=== PATIENT | female | born 1975 | race African-American/Black ===

== ENCOUNTER → 2020-07-31 09:16 | Outpatient (CLI) | payer OTHER, MEDICAID, SELFPAY ==
[2020-07-31 19:49] LABS: C-Reactive Protein Quant < 0.5 mg/dL (<1.0)
[2020-07-31 19:56] LABS: Erythrocyte Sedimentation Rate 29 MM/HR (0-20)
[2020-07-31 20:08] LABS: Thyroid Stimulating Hormone 0.875 uIU/mL (0.47-4.68)
[2020-08-02 05:22] LABS: Immunoglobulin A 126 mg/dL (87-352)
[2020-08-02 17:08] LABS: Tissue Transglutaminase IgA <2 U/mL (0-3)
== END ==
PROVIDERS: Internal Medicine Gastroenterology; Visit Provider Physician Assistant
DX: D64.9 Anemia, unspecified (principal)
CPT/HCPCS: 82784; 83516; 84443; 85651; 86140

== ENCOUNTER → 2021-01-12 11:41 | Outpatient (CLI) | payer OTHER, MEDICAID, SELFPAY ==
[2021-01-12 19:18] LABS: Add Manual Diff / Slide Review NO; Basophils Absolute Auto 100 /uL (0-100); Basophils Percent Auto 1.3 % (0-2); Eosinophils Absolute Auto 100 /uL (0-450); Eosinophils Percent Auto 2.2 % (2-4); Hematocrit 30.1 % (36-46); Hemoglobin 9.4 g/dL (12.0-16.0); Lymphocytes Absolute Auto 1200 /uL (1100-4500); Lymphocytes Percent Auto 28.8 % (25-40); Mean Corpuscular HGB Conc 31.2 % (30-36); Mean Corpuscular Hemoglobin 23.6 PG (26-34); Mean Corpuscular Volume 75.7 fL (80-100); Monocytes Absolute Auto 500 /uL (0-900); Monocytes Percent Auto 13.2 % (3-14); Neutrophils Absolute Auto 2200 /uL (1500-7000); Neutrophils Percent Auto 54.5 % (50-75); Platelet Count 267 X10^3/uL (150-400); Red Blood Cell Count 3.97 X10^6/uL (4.0-5.2); Red Cell Distribution Width 21.2 % (11.6-14.8); White Blood Cell Count 4.1 X10^3/uL (4.5-11.0)
[2021-01-12 19:47] LABS: Poikilocytosis 2+
[2021-01-12 19:48] LABS: Anisocytosis 2+; Microcytosis 1+; Schistocytes 1+; Target Cells 1+
[2021-01-12 20:01] LABS: Erythrocyte Sedimentation Rate 28 MM/HR (0-20)
[2021-01-14 09:22] LABS: Immunoglobulin A 144 mg/dL (87-352)
[2021-01-15 13:09] LABS: Anti Gliadin IgG Ab 3 units (0-19); Gliadin Gluten IgA 4 units (0-19); Tissue Transglutaminase IgA <2 U/mL (0-3)
== END ==
DX: E61.1 Iron deficiency (principal); K59.09 Other constipation; N92.0 Excessive and frequent menstruation with regular cycle; R70.0 Elevated erythrocyte sedimentation rate
CPT/HCPCS: 80053; 82784; 83516; 85025; 85651

== ENCOUNTER 2022-03-12 15:23 | Emergency (ER) | payer OTHER, MEDICAID, SELFPAY ==
[2022-03-12] VITALS (28 sets, daily range): BP systolic 83–143; BP diastolic 47–92; PULSE 73–99; TEMP 36.8–37.3; O2SAT 97–100
--- NOTE | 2022-03-12 16:10 | ED.PSYCH ---
HPI - Psych <Quynh Delgado DO - Last Filed: 03/14/22 04:24> General Chief Complaint: Psychiatric Symptoms Stated Complaint: Schizophrenia Time Seen by Provider: 03/12/22 15:40 Source: patient and EMS Mode of arrival: EMS History of Present Illness HPI Narrative: Patient is a 46-year-old female who presents with walking in and out of traffic and attempting to enter residence private property. Police were called. She required restraints to be transported. She is calm she is not aggressive but she is now not cooperative. Not allowing anyone to touch her. Of very specific about where she wants people to stand. She is requesting that a certain person Justen Joby be contacted. She states that she has legal right. She denies wanting to harm herself or anyone else. Related Data Home Medications Medication Instructions Recorded Confirmed ferrous fumarate 325 mg (106 mg 325 mg PO BID 09/27/20 09/27/20 iron) tablet Previous Rx's Medication Instructions Recorded naproxen 500 mg tablet 500 mg PO BID #30 tabs 10/02/21 Allergies Allergy/AdvReac Type Severity Reaction Status Date / Time No Known Drug Allergies Allergy Verified 03/12/22 15:44 <Beto Hicks DO - Last Filed: 03/14/22 07:40> History of Present Illness HPI Narrative: Patient is a 46-year-old female who presents with walking in and out of traffic and attempting to enter residence private property. Police were called. She required restraints to be transported. She is calm she is not aggressive but she is now not cooperative. Not allowing anyone to touch her. Of very specific about where she wants people to stand. She is requesting that a certain person Justen Joby be contacted. She states that she has legal right. She denies wanting to harm herself or anyone else. Patient History <Quynh Delgado DO - Last Filed: 03/14/22 04:24> Social History Smoking Status: Never smoker Smoking Status: Never smoker Exam <Quynh Delgado DO - Last Filed: 03/14/22 04:24> Initial Vital Signs Initial Vital Signs: Vital Signs Temperature 99.2 F 03/12/22 15:44 Blood Pressure 143/92 H 03/12/22 15:44 <Jeremiah Alexander MD - Last Filed: 03/26/22 07:21> Initial Vital Signs Initial Vital Signs: Vital Signs Temperature 99.2 F 03/12/22 15:44 Blood Pressure 143/92 H 03/12/22 15:44 <Beto Hicks DO - Last Filed: 03/14/22 07:40> Initial Vital Signs Initial Vital Signs: Vital Signs Temperature 99.2 F 03/12/22 15:44 Blood Pressure 143/92 H 03/12/22 15:44 Course <Quynh Delgado DO - Last Filed: 03/14/22 04:24> Orders Ordered: Discontinued Medications Diphenhydramine HCl (Diphenhydramine 50 Mg/Ml Vial) 50 mg IM NOW ONE Stop: 03/12/22 17:48 Last Admin: 03/12/22 17:54 Dose: 50 mg Documented By: CATY Lorazepam (Lorazepam 2 Mg/Ml Inj) 2 mg IM NOW ONE Stop: 03/12/22 17:48 Last Admin: 03/12/22 17:54 Dose: 2 mg Documented By: CATY Olanzapine (Olanzapine Odt 10 Mg Tab) 10 mg PO NOW ONE Stop: 03/13/22 19:36 Last Admin: 03/13/22 23:19 Dose: Not Given Documented By: RB Vital Signs Vital signs: Vital Signs - 8 hr 03/13/22 22:58 Respiratory Rate 16 <Jeremiah Alexander MD - Last Filed: 03/26/22 07:21> Course Course Narrative: March 12, 2022 at 6:00 p.m.. Sign out from Dr. Delgado, patient is likely gravely disabled. Will need DCR in social work. Labs are pending. Patient required Haldol and Ativan and Benadryl for acute psychosis. Very little is known about patient at this time. However patient was walking in and out of traffic and residents and businesses. Patient has been very paranoid as well. March 13, 2022 at 7:00 a.m., Sign out Dr Hicks, patient awaiting for DCR however patient was medicated last night and needs to metabolize for clarity/conversation with DCR. Patient was seen by social insurance specialist Orders Ordered: Discontinued Medications Diphenhydramine HCl (Diphenhydramine 50 Mg/Ml Vial) 50 mg IM NOW ONE Stop: 03/12/22 17:48 Last Admin: 03/12/22 17:54 Dose: 50 mg Documented By: CATY Lorazepam (Lorazepam 2 Mg/Ml Inj) 2 mg IM NOW ONE Stop: 03/12/22 17:48 Last Admin: 03/12/22 17:54 Dose: 2 mg Documented By: CATY Olanzapine (Olanzapine Odt 10 Mg Tab) 10 mg PO NOW ONE Stop: 03/13/22 19:36 Last Admin: 03/13/22 23:19 Dose: Not Given Documented By: RB Vital Signs Vital signs: Vital Signs - 8 hr 03/13/22 22:58 Respiratory Rate 16 <Beto Hicks, DO - Last Filed: 03/14/22 07:40> Course Course Narrative: March 12, 2022 at 6:00 p.m.. Sign out from Dr. Delgado, patient is likely gravely disabled. Will need DCR in social work. Labs are pending. Patient required Haldol and Ativan and Benadryl for acute psychosis. Very little is known about patient at this time. However patient was walking in and out of traffic and residents and businesses. Patient has been very paranoid as well. March 13, 2022 at 7:00 a.m., Sign out Dr Hicks, patient awaiting for DCR however patient was medicated last night and needs to metabolize for clarity/conversation with DCR. Patient was seen by social insurance specialist [[id number]] 03/13/22 (Kurt) Patient received in sign out from [Catherine]. I have reviewed the clinical course and performed an independent history and physical exam. She sitting up bright only complaint is of being a bit groggy from the medications. She is eating. She states she does not have any medical or mental health history. She denies any trauma or injury. She denies any street drugs or alcohol. She denies that she was agitated, worked up or acting abnormally yesterday and states that we must be making it up. She is currently refusing a repeat physical exam 0810 03/13/22 -patient medically cleared Orders Ordered: Discontinued Medications Diphenhydramine HCl (Diphenhydramine 50 Mg/Ml Vial) 50 mg IM NOW ONE Stop: 03/12/22 17:48 Last Admin: 03/12/22 17:54 Dose: 50 mg Documented By: CATY Lorazepam (Lorazepam 2 Mg/Ml Inj) 2 mg IM NOW ONE Stop: 03/12/22 17:48 Last Admin: 03/12/22 17:54 Dose: 2 mg Documented By: CATY Olanzapine (Olanzapine Odt 10 Mg Tab) 10 mg PO NOW ONE Stop: 03/13/22 19:36 Last Admin: 03/13/22 23:19 Dose: Not Given Documented By: RB Vital Signs Vital signs: Vital Signs - 8 hr 03/13/22 22:58 Respiratory Rate 16 MDM - Psych <Quynh Delgado DO - Last Filed: 03/14/22 04:24> Lab Data Result diagrams: 03/12/22 19:15 03/12/22 19:15 Labs: Lab Results 03/12/22 03/12/22 03/12/22 Range/Units 18:15 18:15 19:15 WBC (4.5-11.0) X10^3/uL RBC (4.0-5.2) X10^6/uL Hgb (12.0-16.0) g/dL Hct (36-46) % MCV (80-100) fL MCH (26-34) PG MCHC (30-36) % RDW (11.6-14.8) % Plt Count (150-400) X10^3/uL Neut % (Auto) (50-75) % Lymph % (Auto) (25-40) % [place] % (Auto) (3-14) % Eos % (Auto) (2-4) % Baso % (Auto) (0-2) % Neut # (Auto) (6021-6432) /uL Lymph # (Auto) (4155-9035) /uL [place] # (Auto) (0-900) /uL Eos # (Auto) (0-450) /uL Baso # (Auto) (0-100) /uL Sodium (137-145) mmol/L Potassium (3.4-5.1) mmol/L Chloride (98-107) mmol/L Carbon Dioxide (22-32) mmol/L BUN (7-17) mg/dL Creatinine (0.52-1.04) mg/dL Estimated GFR (>60) mL/min BUN/Creatinine Ratio (6-22) Glucose (70-100) mg/dL Calcium (8.4-10.2) mg/dL Total Bilirubin (0.2-1.3) mg/dL AST (14-36) IU/L ALT (<35) IU/L Alkaline Phosphatase (38-126) U/L Total Protein (6.3-8.2) g/dL Albumin (3.5-5.0) g/dL Globulin (1.7-4.1) g/dL Albumin/Globulin Ratio (1.0-2.8) TSH 2.46 (0.47-4.68) uIU/mL Serum , Qual (Negative) Urine Color Yellow Urine Appearance Clear Urine pH 5.5 (4.5-8.0) Ur Specific [place] 1.025 (1.000-1.035) Urine Protein 2+ H (Negative) Urine Glucose (UA) Negative (Negative) g/dL Urine Ketones Trace H (NEGATIVE) Urine Occult Blood 1+ H (Negative) Urine Nitrate Negative (Negative) Urine Bilirubin Negative (NEGATIVE) Urine Urobilinogen 0.2 (0.2) E.U./dL Ur Leukocyte Esterase Trace H (NEGATIVE) Urine RBC 1-5/hpf (0-5/HPF) Urine WBC 1-5/hpf (0-5/HPF) Ur Squamous Epith Cells 1-5 /hpf (0-5/HPF) Amorphous Sediment 1+ Urine Bacteria Moderate (10-30) H (None) Urine Mucus 2+ H (Negative) Ur Culture Indicated? Specimen cultured Salicylates (<20) mg/dL U Opiates 300ng/mL cut Negative (Negative) Ur Oxycodone Screen Negative (Negative) Urine Methadone Screen Negative (Negative) Acetaminophen (10-30) ug/mL Ur Barbiturates Screen Negative (Negative) U Tricyclic Antidepress Negative (Negative) Ur Phencyclidine Scrn Negative (Negative) Ur Amphetamines Screen Negative (Negative) U Methamphetamines Scrn Negative (Negative) Ur MDMA Scrn (Ecstasy) Negative (Negative) U Benzodiazepines Scrn Negative (Negative) Urine Cocaine Screen Negative (Negative) U Marijuana (THC) Screen Negative (Negative) Ethyl Alcohol ( - 10) mg/dL SARS-CoV-2 (PCR) (Negative) 03/12/22 03/12/22 03/12/22 Range/Units 19:15 19:15 19:15 WBC 5.5 (4.5-11.0) X10^3/uL RBC 3.94 L (4.0-5.2) X10^6/uL Hgb 9.9 L (12.0-16.0) g/dL Hct 31.2 L (36-46) % MCV 79.2 L (80-100) fL MCH 25.2 L (26-34) PG MCHC 31.8 (30-36) % RDW 18.5 H (11.6-14.8) % Plt Count 336 (150-400) X10^3/uL Neut % (Auto) 74.1 (50-75) % Lymph % (Auto) 13.3 L (25-40) % [place] % (Auto) 10.9 (3-14) % Eos % (Auto) 0.1 L (2-4) % Baso % (Auto) 1.6 (0-2) % Neut # (Auto) 4100 (1087-0210) /uL Lymph # (Auto) 700 L (7223-3559) /uL [place] # (Auto) 600 (0-900) /uL Eos # (Auto) 0 (0-450) /uL Baso # (Auto) 100 (0-100) /uL Sodium (137-145) mmol/L Potassium (3.4-5.1) mmol/L Chloride (98-107) mmol/L Carbon Dioxide (22-32) mmol/L BUN (7-17) mg/dL Creatinine (0.52-1.04) mg/dL Estimated GFR (>60) mL/min BUN/Creatinine Ratio (6-22) Glucose (70-100) mg/dL Calcium (8.4-10.2) mg/dL Total Bilirubin (0.2-1.3) mg/dL AST (14-36) IU/L ALT (<35) IU/L Alkaline Phosphatase (38-126) U/L Total Protein (6.3-8.2) g/dL Albumin (3.5-5.0) g/dL Globulin (1.7-4.1) g/dL Albumin/Globulin Ratio (1.0-2.8) TSH (0.47-4.68) uIU/mL Serum , Qual Negative (Negative) Urine Color Urine Appearance Urine pH (4.5-8.0) Ur Specific [place] (1.000-1.035) Urine Protein (Negative) Urine Glucose (UA) (Negative) g/dL Urine Ketones (NEGATIVE) Urine Occult Blood (Negative) Urine Nitrate (Negative) Urine Bilirubin (NEGATIVE) Urine Urobilinogen (0.2) E.U./dL Ur Leukocyte Esterase (NEGATIVE) Urine RBC (0-5/HPF) Urine WBC (0-5/HPF) Ur Squamous Epith Cells (0-5/HPF) Amorphous Sediment Urine Bacteria (None) Urine Mucus (Negative) Ur Culture Indicated? Salicylates < 1.0 (<20) mg/dL U Opiates 300ng/mL cut (Negative) Ur Oxycodone Screen (Negative) Urine Methadone Screen (Negative) Acetaminophen < 10 (10-30) ug/mL Ur Barbiturates Screen (Negative) U Tricyclic Antidepress (Negative) Ur Phencyclidine Scrn (Negative) Ur Amphetamines Screen (Negative) U Methamphetamines Scrn (Negative) Ur MDMA Scrn (Ecstasy) (Negative) U Benzodiazepines Scrn (Negative) Urine Cocaine Screen (Negative) U Marijuana (THC) Screen (Negative) Ethyl Alcohol ( - 10) mg/dL SARS-CoV-2 (PCR) (Negative) 03/12/22 03/12/22 Range/Units 19:15 20:00 WBC (4.5-11.0) X10^3/uL RBC (4.0-5.2) X10^6/uL Hgb (12.0-16.0) g/dL Hct (36-46) % MCV (80-100) fL MCH (26-34) PG MCHC (30-36) % RDW (11.6-14.8) % Plt Count (150-400) X10^3/uL Neut % (Auto) (50-75) % Lymph % (Auto) (25-40) % [place] % (Auto) (3-14) % Eos % (Auto) (2-4) % Baso % (Auto) (0-2) % Neut # (Auto) (3773-5718) /uL Lymph # (Auto) (8775-6035) /uL [place] # (Auto) (0-900) /uL Eos # (Auto) (0-450) /uL Baso # (Auto) (0-100) /uL Sodium 140 (137-145) mmol/L Potassium 3.5 (3.4-5.1) mmol/L Chloride 103 (98-107) mmol/L Carbon Dioxide 25 (22-32) mmol/L BUN 11 (7-17) mg/dL Creatinine 0.52 (0.52-1.04) mg/dL Estimated GFR > 60 (>60) mL/min BUN/Creatinine Ratio 21.2 (6-22) Glucose 108 H (70-100) mg/dL Calcium 9.6 (8.4-10.2) mg/dL Total Bilirubin 0.4 (0.2-1.3) mg/dL AST 26 (14-36) IU/L ALT 18 (<35) IU/L Alkaline Phosphatase 51 (38-126) U/L Total Protein 8.7 H (6.3-8.2) g/dL Albumin 4.8 (3.5-5.0) g/dL Globulin 3.9 (1.7-4.1) g/dL Albumin/Globulin Ratio 1.2 (1.0-2.8) TSH (0.47-4.68) uIU/mL Serum , Qual (Negative) Urine Color Urine Appearance Urine pH (4.5-8.0) Ur Specific [place] (1.000-1.035) Urine Protein (Negative) Urine Glucose (UA) (Negative) g/dL Urine Ketones (NEGATIVE) Urine Occult Blood (Negative) Urine Nitrate (Negative) Urine Bilirubin (NEGATIVE) Urine Urobilinogen (0.2) E.U./dL Ur Leukocyte Esterase (NEGATIVE) Urine RBC (0-5/HPF) Urine WBC (0-5/HPF) Ur Squamous Epith Cells (0-5/HPF) Amorphous Sediment Urine Bacteria (None) Urine Mucus (Negative) Ur Culture Indicated? Salicylates (<20) mg/dL U Opiates 300ng/mL cut (Negative) Ur Oxycodone Screen (Negative) Urine Methadone Screen (Negative) Acetaminophen (10-30) ug/mL Ur Barbiturates Screen (Negative) U Tricyclic Antidepress (Negative) Ur Phencyclidine Scrn (Negative) Ur Amphetamines Screen (Negative) U Methamphetamines Scrn (Negative) Ur MDMA Scrn (Ecstasy) (Negative) U Benzodiazepines Scrn (Negative) Urine Cocaine Screen (Negative) U Marijuana (THC) Screen (Negative) Ethyl Alcohol < 10 ( - 10) mg/dL SARS-CoV-2 (PCR) Negative (Negative) MDM Narrative Medical decision making narrative: Patient was given multiple opportunities to cooperate. She was restrained with soft restraints for EMS however the restraints were not tied to a bed. We attempted and tried multiple times to take them off her wrists at her request. But then she did not want anyone touching her. She continues to request multiple 35 years to come and see her. sHe is not suicidal or homicidal. She is extremely paranoid. She is found to be walking in and out of traffic. There is concern from police that she is mentally unwell and I agree. Patient stood up and walked out of the emergency department. It was requested that she come back and she kept walking faster and started running. Patient was given multiple opportunities to return to the emergency department. She was unwilling to go. She was given a shot of Haldol and placed in a wheelchair. Patient stating that she could not walk on the floor she could not sit in the wheelchair because somebody in it. Once patient back in the emergency department. Refusing to continue to cooperate. Wants to go to the bathroom she is offered a bedside commode. That is not what she wants. Patient is given Ativan and Benadryl. Continues to refuse blood work. She continues to be paranoid and hyper focused on finding this 1 particular person who we can not find. Patient is gravely disabled extremely paranoid she is not aggressive in any way but is not cooperative. Numbers in patient chart have been tried. [phone] is no longer working, is continuously busy. Patient signed out to Dr. Alexander. Patient currently involuntary botnick- Patient placed as [place] she is been updated and is cooperative about going <Jermeiah Alexander MD - Last Filed: 03/26/22 07:21> Lab Data Labs: Lab Results 03/12/22 03/12/22 03/12/22 Range/Units 18:15 18:15 19:15 WBC (4.5-11.0) X10^3/uL RBC (4.0-5.2) X10^6/uL Hgb (12.0-16.0) g/dL Hct (36-46) % MCV (80-100) fL MCH (26-34) PG MCHC (30-36) % RDW (11.6-14.8) % Plt Count (150-400) X10^3/uL Neut % (Auto) (50-75) % Lymph % (Auto) (25-40) % [place] % (Auto) (3-14) % Eos % (Auto) (2-4) % Baso % (Auto) (0-2) % Neut # (Auto) (1270-1801) /uL Lymph # (Auto) (5228-3369) /uL [place] # (Auto) (0-900) /uL Eos # (Auto) (0-450) /uL Baso # (Auto) (0-100) /uL Sodium (137-145) mmol/L Potassium (3.4-5.1) mmol/L Chloride (98-107) mmol/L Carbon Dioxide (22-32) mmol/L BUN (7-17) mg/dL Creatinine (0.52-1.04) mg/dL Estimated GFR (>60) mL/min BUN/Creatinine Ratio (6-22) Glucose (70-100) mg/dL Calcium (8.4-10.2) mg/dL Total Bilirubin (0.2-1.3) mg/dL AST (14-36) IU/L ALT (<35) IU/L Alkaline Phosphatase (38-126) U/L Total Protein (6.3-8.2) g/dL Albumin (3.5-5.0) g/dL Globulin (1.7-4.1) g/dL Albumin/Globulin Ratio (1.0-2.8) TSH 2.46 (0.47-4.68) uIU/mL Serum , Qual (Negative) Urine Color Yellow Urine Appearance Clear Urine pH 5.5 (4.5-8.0) Ur Specific [place] 1.025 (1.000-1.035) Urine Protein 2+ H (Negative) Urine Glucose (UA) Negative (Negative) g/dL Urine Ketones Trace H (NEGATIVE) Urine Occult Blood 1+ H (Negative) Urine Nitrate Negative (Negative) Urine Bilirubin Negative (NEGATIVE) Urine Urobilinogen 0.2 (0.2) E.U./dL Ur Leukocyte Esterase Trace H (NEGATIVE) Urine RBC 1-5/hpf (0-5/HPF) Urine WBC 1-5/hpf (0-5/HPF) Ur Squamous Epith Cells 1-5 /hpf (0-5/HPF) Amorphous Sediment 1+ Urine Bacteria Moderate (10-30) H (None) Urine Mucus 2+ H (Negative) Ur Culture Indicated? Specimen cultured Salicylates (<20) mg/dL U Opiates 300ng/mL cut Negative (Negative) Ur Oxycodone Screen Negative (Negative) Urine Methadone Screen Negative (Negative) Acetaminophen (10-30) ug/mL Ur Barbiturates Screen Negative (Negative) U Tricyclic Antidepress Negative (Negative) Ur Phencyclidine Scrn Negative (Negative) Ur Amphetamines Screen Negative (Negative) U Methamphetamines Scrn Negative (Negative) Ur MDMA Scrn (Ecstasy) Negative (Negative) U Benzodiazepines Scrn Negative (Negative) Urine Cocaine Screen Negative (Negative) U Marijuana (THC) Screen Negative (Negative) Ethyl Alcohol ( - 10) mg/dL SARS-CoV-2 (PCR) (Negative) 03/12/22 03/12/22 03/12/22 Range/Units 19:15 19:15 19:15 WBC 5.5 (4.5-11.0) X10^3/uL RBC 3.94 L (4.0-5.2) X10^6/uL Hgb 9.9 L (12.0-16.0) g/dL Hct 31.2 L (36-46) % MCV 79.2 L (80-100) fL MCH 25.2 L (26-34) PG MCHC 31.8 (30-36) % RDW 18.5 H (11.6-14.8) % Plt Count 336 (150-400) X10^3/uL Neut % (Auto) 74.1 (50-75) % Lymph % (Auto) 13.3 L (25-40) % [place] % (Auto) 10.9 (3-14) % Eos % (Auto) 0.1 L (2-4) % Baso % (Auto) 1.6 (0-2) % Neut # (Auto) 4100 (9149-4537) /uL Lymph # (Auto) 700 L (4212-4582) /uL [place] # (Auto) 600 (0-900) /uL Eos # (Auto) 0 (0-450) /uL Baso # (Auto) 100 (0-100) /uL Sodium (137-145) mmol/L Potassium (3.4-5.1) mmol/L Chloride (98-107) mmol/L Carbon Dioxide (22-32) mmol/L BUN (7-17) mg/dL Creatinine (0.52-1.04) mg/dL Estimated GFR (>60) mL/min BUN/Creatinine Ratio (6-22) Glucose (70-100) mg/dL Calcium (8.4-10.2) mg/dL Total Bilirubin (0.2-1.3) mg/dL AST (14-36) IU/L ALT (<35) IU/L Alkaline Phosphatase (38-126) U/L Total Protein (6.3-8.2) g/dL Albumin (3.5-5.0) g/dL Globulin (1.7-4.1) g/dL Albumin/Globulin Ratio (1.0-2.8) TSH (0.47-4.68) uIU/mL Serum , Qual Negative (Negative) Urine Color Urine Appearance Urine pH (4.5-8.0) Ur Specific [place] (1.000-1.035) Urine Protein (Negative) Urine Glucose (UA) (Negative) g/dL Urine Ketones (NEGATIVE) Urine Occult Blood (Negative) Urine Nitrate (Negative) Urine Bilirubin (NEGATIVE) Urine Urobilinogen (0.2) E.U./dL Ur Leukocyte Esterase (NEGATIVE) Urine RBC (0-5/HPF) Urine WBC (0-5/HPF) Ur Squamous Epith Cells (0-5/HPF) Amorphous Sediment Urine Bacteria (None) Urine Mucus (Negative) Ur Culture Indicated? Salicylates < 1.0 (<20) mg/dL U Opiates 300ng/mL cut (Negative) Ur Oxycodone Screen (Negative) Urine Methadone Screen (Negative) Acetaminophen < 10 (10-30) ug/mL Ur Barbiturates Screen (Negative) U Tricyclic Antidepress (Negative) Ur Phencyclidine Scrn (Negative) Ur Amphetamines Screen (Negative) U Methamphetamines Scrn (Negative) Ur MDMA Scrn (Ecstasy) (Negative) U Benzodiazepines Scrn (Negative) Urine Cocaine Screen (Negative) U Marijuana (THC) Screen (Negative) Ethyl Alcohol ( - 10) mg/dL SARS-CoV-2 (PCR) (Negative) 03/12/22 03/12/22 Range/Units 19:15 20:00 WBC (4.5-11.0) X10^3/uL RBC (4.0-5.2) X10^6/uL Hgb (12.0-16.0) g/dL Hct (36-46) % MCV (80-100) fL MCH (26-34) PG MCHC (30-36) % RDW (11.6-14.8) % Plt Count (150-400) X10^3/uL Neut % (Auto) (50-75) % Lymph % (Auto) (25-40) % [place] % (Auto) (3-14) % Eos % (Auto) (2-4) % Baso % (Auto) (0-2) % Neut # (Auto) (7928-8494) /uL Lymph # (Auto) (6842-8369) /uL [place] # (Auto) (0-900) /uL Eos # (Auto) (0-450) /uL Baso # (Auto) (0-100) /uL Sodium 140 (137-145) mmol/L Potassium 3.5 (3.4-5.1) mmol/L Chloride 103 (98-107) mmol/L Carbon Dioxide 25 (22-32) mmol/L BUN 11 (7-17) mg/dL Creatinine 0.52 (0.52-1.04) mg/dL Estimated GFR > 60 (>60) mL/min BUN/Creatinine Ratio 21.2 (6-22) Glucose 108 H (70-100) mg/dL Calcium 9.6 (8.4-10.2) mg/dL Total Bilirubin 0.4 (0.2-1.3) mg/dL AST 26 (14-36) IU/L ALT 18 (<35) IU/L Alkaline Phosphatase 51 (38-126) U/L Total Protein 8.7 H (6.3-8.2) g/dL Albumin 4.8 (3.5-5.0) g/dL Globulin 3.9 (1.7-4.1) g/dL Albumin/Globulin Ratio 1.2 (1.0-2.8) TSH (0.47-4.68) uIU/mL Serum , Qual (Negative) Urine Color Urine Appearance Urine pH (4.5-8.0) Ur Specific [place] (1.000-1.035) Urine Protein (Negative) Urine Glucose (UA) (Negative) g/dL Urine Ketones (NEGATIVE) Urine Occult Blood (Negative) Urine Nitrate (Negative) Urine Bilirubin (NEGATIVE) Urine Urobilinogen (0.2) E.U./dL Ur Leukocyte Esterase (NEGATIVE) Urine RBC (0-5/HPF) Urine WBC (0-5/HPF) Ur Squamous Epith Cells (0-5/HPF) Amorphous Sediment Urine Bacteria (None) Urine Mucus (Negative) Ur Culture Indicated? Salicylates (<20) mg/dL U Opiates 300ng/mL cut (Negative) Ur Oxycodone Screen (Negative) Urine Methadone Screen (Negative) Acetaminophen (10-30) ug/mL Ur Barbiturates Screen (Negative) U Tricyclic Antidepress (Negative) Ur Phencyclidine Scrn (Negative) Ur Amphetamines Screen (Negative) U Methamphetamines Scrn (Negative) Ur MDMA Scrn (Ecstasy) (Negative) U Benzodiazepines Scrn (Negative) Urine Cocaine Screen (Negative) U Marijuana (THC) Screen (Negative) Ethyl Alcohol < 10 ( - 10) mg/dL SARS-CoV-2 (PCR) Negative (Negative) <Beto Hicks DO - Last Filed: 03/14/22 07:40> Lab Data Labs: Lab Results 03/12/22 03/12/22 03/12/22 Range/Units 18:15 18:15 19:15 WBC (4.5-11.0) X10^3/uL RBC (4.0-5.2) X10^6/uL Hgb (12.0-16.0) g/dL Hct (36-46) % MCV (80-100) fL MCH (26-34) PG MCHC (30-36) % RDW (11.6-14.8) % Plt Count (150-400) X10^3/uL Neut % (Auto) (50-75) % Lymph % (Auto) (25-40) % [place] % (Auto) (3-14) % Eos % (Auto) (2-4) % Baso % (Auto) (0-2) % Neut # (Auto) (5244-9882) /uL Lymph # (Auto) (6393-9342) /uL [place] # (Auto) (0-900) /uL Eos # (Auto) (0-450) /uL Baso # (Auto) (0-100) /uL Sodium (137-145) mmol/L Potassium (3.4-5.1) mmol/L Chloride (98-107) mmol/L Carbon Dioxide (22-32) mmol/L BUN (7-17) mg/dL Creatinine (0.52-1.04) mg/dL Estimated GFR (>60) mL/min BUN/Creatinine Ratio (6-22) Glucose (70-100) mg/dL Calcium (8.4-10.2) mg/dL Total Bilirubin (0.2-1.3) mg/dL AST (14-36) IU/L ALT (<35) IU/L Alkaline Phosphatase (38-126) U/L Total Protein (6.3-8.2) g/dL Albumin (3.5-5.0) g/dL Globulin (1.7-4.1) g/dL Albumin/Globulin Ratio (1.0-2.8) TSH 2.46 (0.47-4.68) uIU/mL Serum , Qual (Negative) Urine Color Yellow Urine Appearance Clear Urine pH 5.5 (4.5-8.0) Ur Specific [place] 1.025 (1.000-1.035) Urine Protein 2+ H (Negative) Urine Glucose (UA) Negative (Negative) g/dL Urine Ketones Trace H (NEGATIVE) Urine Occult Blood 1+ H (Negative) Urine Nitrate Negative (Negative) Urine Bilirubin Negative (NEGATIVE) Urine Urobilinogen 0.2 (0.2) E.U./dL Ur Leukocyte Esterase Trace H (NEGATIVE) Urine RBC 1-5/hpf (0-5/HPF) Urine WBC 1-5/hpf (0-5/HPF) Ur Squamous Epith Cells 1-5 /hpf (0-5/HPF) Amorphous Sediment 1+ Urine Bacteria Moderate (10-30) H (None) Urine Mucus 2+ H (Negative) Ur Culture Indicated? Specimen cultured Salicylates (<20) mg/dL U Opiates 300ng/mL cut Negative (Negative) Ur Oxycodone Screen Negative (Negative) Urine Methadone Screen Negative (Negative) Acetaminophen (10-30) ug/mL Ur Barbiturates Screen Negative (Negative) U Tricyclic Antidepress Negative (Negative) Ur Phencyclidine Scrn Negative (Negative) Ur Amphetamines Screen Negative (Negative) U Methamphetamines Scrn Negative (Negative) Ur MDMA Scrn (Ecstasy) Negative (Negative) U Benzodiazepines Scrn Negative (Negative) Urine Cocaine Screen Negative (Negative) U Marijuana (THC) Screen Negative (Negative) Ethyl Alcohol ( - 10) mg/dL SARS-CoV-2 (PCR) (Negative) 03/12/22 03/12/22 03/12/22 Range/Units 19:15 19:15 19:15 WBC 5.5 (4.5-11.0) X10^3/uL RBC 3.94 L (4.0-5.2) X10^6/uL Hgb 9.9 L (12.0-16.0) g/dL Hct 31.2 L (36-46) % MCV 79.2 L (80-100) fL MCH 25.2 L (26-34) PG MCHC 31.8 (30-36) % RDW 18.5 H (11.6-14.8) % Plt Count 336 (150-400) X10^3/uL Neut % (Auto) 74.1 (50-75) % Lymph % (Auto) 13.3 L (25-40) % [place] % (Auto) 10.9 (3-14) % Eos % (Auto) 0.1 L (2-4) % Baso % (Auto) 1.6 (0-2) % Neut # (Auto) 4100 (8268-1468) /uL Lymph # (Auto) 700 L (0339-3229) /uL [place] # (Auto) 600 (0-900) /uL Eos # (Auto) 0 (0-450) /uL Baso # (Auto) 100 (0-100) /uL Sodium (137-145) mmol/L Potassium (3.4-5.1) mmol/L Chloride (98-107) mmol/L Carbon Dioxide (22-32) mmol/L BUN (7-17) mg/dL Creatinine (0.52-1.04) mg/dL Estimated GFR (>60) mL/min BUN/Creatinine Ratio (6-22) Glucose (70-100) mg/dL Calcium (8.4-10.2) mg/dL Total Bilirubin (0.2-1.3) mg/dL AST (14-36) IU/L ALT (<35) IU/L Alkaline Phosphatase (38-126) U/L Total Protein (6.3-8.2) g/dL Albumin (3.5-5.0) g/dL Globulin (1.7-4.1) g/dL Albumin/Globulin Ratio (1.0-2.8) TSH (0.47-4.68) uIU/mL Serum , Qual Negative (Negative) Urine Color Urine Appearance Urine pH (4.5-8.0) Ur Specific [place] (1.000-1.035) Urine Protein (Negative) Urine Glucose (UA) (Negative) g/dL Urine Ketones (NEGATIVE) Urine Occult Blood (Negative) Urine Nitrate (Negative) Urine Bilirubin (NEGATIVE) Urine Urobilinogen (0.2) E.U./dL Ur Leukocyte Esterase (NEGATIVE) Urine RBC (0-5/HPF) Urine WBC (0-5/HPF) Ur Squamous Epith Cells (0-5/HPF) Amorphous Sediment Urine Bacteria (None) Urine Mucus (Negative) Ur Culture Indicated? Salicylates < 1.0 (<20) mg/dL U Opiates 300ng/mL cut (Negative) Ur Oxycodone Screen (Negative) Urine Methadone Screen (Negative) Acetaminophen < 10 (10-30) ug/mL Ur Barbiturates Screen (Negative) U Tricyclic Antidepress (Negative) Ur Phencyclidine Scrn (Negative) Ur Amphetamines Screen (Negative) U Methamphetamines Scrn (Negative) Ur MDMA Scrn (Ecstasy) (Negative) U Benzodiazepines Scrn (Negative) Urine Cocaine Screen (Negative) U Marijuana (THC) Screen (Negative) Ethyl Alcohol ( - 10) mg/dL SARS-CoV-2 (PCR) (Negative) 03/12/22 03/12/22 Range/Units 19:15 20:00 WBC (4.5-11.0) X10^3/uL RBC (4.0-5.2) X10^6/uL Hgb (12.0-16.0) g/dL Hct (36-46) % MCV (80-100) fL MCH (26-34) PG MCHC (30-36) % RDW (11.6-14.8) % Plt Count (150-400) X10^3/uL Neut % (Auto) (50-75) % Lymph % (Auto) (25-40) % [place] % (Auto) (3-14) % Eos % (Auto) (2-4) % Baso % (Auto) (0-2) % Neut # (Auto) (0006-6651) /uL Lymph # (Auto) (4538-8036) /uL [place] # (Auto) (0-900) /uL Eos # (Auto) (0-450) /uL Baso # (Auto) (0-100) /uL Sodium 140 (137-145) mmol/L Potassium 3.5 (3.4-5.1) mmol/L Chloride 103 (98-107) mmol/L Carbon Dioxide 25 (22-32) mmol/L BUN 11 (7-17) mg/dL Creatinine 0.52 (0.52-1.04) mg/dL Estimated GFR > 60 (>60) mL/min BUN/Creatinine Ratio 21.2 (6-22) Glucose 108 H (70-100) mg/dL Calcium 9.6 (8.4-10.2) mg/dL Total Bilirubin 0.4 (0.2-1.3) mg/dL AST 26 (14-36) IU/L ALT 18 (<35) IU/L Alkaline Phosphatase 51 (38-126) U/L Total Protein 8.7 H (6.3-8.2) g/dL Albumin 4.8 (3.5-5.0) g/dL Globulin 3.9 (1.7-4.1) g/dL Albumin/Globulin Ratio 1.2 (1.0-2.8) TSH (0.47-4.68) uIU/mL Serum , Qual (Negative) Urine Color Urine Appearance Urine pH (4.5-8.0) Ur Specific [place] (1.000-1.035) Urine Protein (Negative) Urine Glucose (UA) (Negative) g/dL Urine Ketones (NEGATIVE) Urine Occult Blood (Negative) Urine Nitrate (Negative) Urine Bilirubin (NEGATIVE) Urine Urobilinogen (0.2) E.U./dL Ur Leukocyte Esterase (NEGATIVE) Urine RBC (0-5/HPF) Urine WBC (0-5/HPF) Ur Squamous Epith Cells (0-5/HPF) Amorphous Sediment Urine Bacteria (None) Urine Mucus (Negative) Ur Culture Indicated? Salicylates (<20) mg/dL U Opiates 300ng/mL cut (Negative) Ur Oxycodone Screen (Negative) Urine Methadone Screen (Negative) Acetaminophen (10-30) ug/mL Ur Barbiturates Screen (Negative) U Tricyclic Antidepress (Negative) Ur Phencyclidine Scrn (Negative) Ur Amphetamines Screen (Negative) U Methamphetamines Scrn (Negative) Ur MDMA Scrn (Ecstasy) (Negative) U Benzodiazepines Scrn (Negative) Urine Cocaine Screen (Negative) U Marijuana (THC) Screen (Negative) Ethyl Alcohol < 10 ( - 10) mg/dL SARS-CoV-2 (PCR) Negative (Negative) Discharge Plan Departure Patient Disposition: Xfer Psychiatric Hosp Clinical Impression: Acute psychosis, Acute paranoia Prescriptions: No Action ferrous fumarate 325 mg (106 mg iron) tablet 325 mg PO BID naproxen 500 mg tablet 500 mg PO BID Qty: 30 0RF Referrals: Jeremiah Spencer MD [Primary Care Provider] -
--- NOTE | 2022-03-12 17:06 | CM.SWNOTE ---
Addendum entered by FAITH Gillespie 03/12/22 20:18: Per ED provider, pt is medically clear pending negative covid swab. SW re-engaged DCR and is awaiting call back. SW prepared packet for DCR and gave to [facility]. Per conversation with DCR earlier, pt was found in similar situation in November and was hospitalized in [facility] for three days while waiting for a psych bed to open. Pt was eventually detained and hospitalized at [facility] in [place]. Records have been requested for this stay. FAITH Gillespie Addendum entered by FAITH Gillespie 03/12/22 18:06: Pt eloped from room to waiting room and refused to come back peacefully. Pt was given PRN medication and brought back to room, where she will be restrained. Lab work is pending. Once pt is medically clear, SW will re-engage DCR for evaluation. FAITH Gillespie Original Note: ED SW Note Pt is 45 year old female with history of schizophrenia that presents via EMS. Pt was found running in traffic and attempting to enter private residences. SW met pt at bedside to initiate MH evaluation, however pt was too disorganized to participate in a meaningful way. Pt reports I am Guzman Love. I go by Guzman. Please have everyone change your records so that I am Guzman. SW confirmed that we would change records, however pt would not allow SW into room. SW attempted to interview pt from doorway but patient would not provide any information. Pt reports that she will only speak with Octaviano Guevara. SW inquires who this is and pt reports that he is her mental health professional. SW asks where Octaviano works and patient states, [employer]...no wait, change that to [employer]. Pt requests that their restrains be removed and SW informs pt that we cannot remove them at this time until a provider as cleared pt. Pt reports that she is from [place] but does not have any ID on her. SW attempts to ask further questions but pt refuses to participate in interview and asks SW to leave. SW called DCR and requested an evaluation. Plan: SW will wait for return call from DCR regarding process for when pt's refuse to provide lab work or urine sample. FAITH Gillespie
--- NOTE | 2022-03-12 17:22 | PC.NURSE ---
This RN has attempted to access this patient. Patient refuses to answer any questions or allow any physcial assessments from any personal until we can successfully reach a mental health professional Octaviano Guevara. BALLOON DESIGN PRINTER consult placed and 7th grade social studies teacher actively interviewing the patient.
[2022-03-12] MEDS: HALOPERIDOL 5 MG/ML VIAL (17:38)
[2022-03-12] MEDS: diphenhydrAMINE 50 MG/ML VIAL IM (17:54)
[2022-03-12] MEDS: LORazepam 2 MG/ML INJ IM (17:54)
--- NOTE | 2022-03-12 18:27 | PC.NURSE ---
Patient arrived in soft restraints from EMS but were never secured or attached in emergency department. Several attempts were made by different staff to remove the restraints but patient refused to be touched by anyone. Patient got up from bed at 1733 and exited the emergency room. I was immediately notified by a LOAN OPERATIONS MANAGER and the provider and the LOAN OPERATIONS MANAGER went to follow the patient. The provider asked me to get 5mg of Haldol for this patient if needed. I found the patient laying on the floor with the provider talking to the patient in front of the surgical door. Patient again was asked to stand by the provider. Patient touched by provider and myself on either side of her arms for stabilization to walk. An additional LOAN OPERATIONS MANAGER arrived with wheelchair. Patient no longer willing to go and began pushing staff. Provider directed administration of Haldol. Administered into left outer thigh. Patient stated I cannot walk on floor or sit in wheelchair because they are unclean and people have in them. Patient returned to the emergency department. Patient continues to push at staff. Provider ordered Ativan and Benadryl and they are administered by another RN. Patient asked to use the restroom. Bedside commode is brought to the room. Room cleared of all equipment or potentially harmful materials. Patient changed into paper scrubs. Chemical restraint order done by provider.
--- NOTE | 2022-03-12 18:49 | PC.NURSE ---
pt is sleeping
[2022-03-12 19:27] LABS: Add Manual Diff / Slide Review NO; Basophils Absolute Auto 100 /uL (0-100); Basophils Percent Auto 1.6 % (0-2); Eosinophils Absolute Auto 0 /uL (0-450); Eosinophils Percent Auto 0.1 % (2-4); Hematocrit 31.2 % (36-46); Hemoglobin 9.9 g/dL (12.0-16.0); Lymphocytes Absolute Auto 700 /uL (1100-4500); Lymphocytes Percent Auto 13.3 % (25-40); Mean Corpuscular HGB Conc 31.8 % (30-36); Mean Corpuscular Hemoglobin 25.2 PG (26-34); Mean Corpuscular Volume 79.2 fL (80-100); Monocytes Absolute Auto 600 /uL (0-900); Monocytes Percent Auto 10.9 % (3-14); Neutrophils Absolute Auto 4100 /uL (1500-7000); Neutrophils Percent Auto 74.1 % (50-75); Platelet Count 336 X10^3/uL (150-400); Red Blood Cell Count 3.94 X10^6/uL (4.0-5.2); Red Cell Distribution Width 18.5 % (11.6-14.8); White Blood Cell Count 5.5 X10^3/uL (4.5-11.0)
[2022-03-12 19:36] LABS: Acetaminophen < 10 ug/mL (10-30); Salicylate < 1.0 mg/dL (<20)
[2022-03-12 19:38] LABS: Alanine Aminotransferase 18 IU/L (<35); Albumin 4.8 g/dL (3.5-5.0); Albumin Globulin Ratio 1.2 (1.0-2.8); Alkaline Phosphatase 51 U/L (38-126); Aspartate Aminotransferase 26 IU/L (14-36); BUN Creatinine Ratio 21.2 (6-22); Bilirubin Total 0.4 mg/dL (0.2-1.3); Blood Urea Nitrogen 11 mg/dL (7-17); Calcium 9.6 mg/dL (8.4-10.2); Carbon Dioxide 25 mmol/L (22-32); Chloride 103 mmol/L (98-107); Estimated Glomerular Filt Rate > 60 mL/min (>60); Ethanol (ETOH) < 10 mg/dL; Globulin 3.9 g/dL (1.7-4.1); Glucose 108 mg/dL (70-100); HEMOLYSIS < 15 (0-50); Potassium 3.5 mmol/L (3.4-5.1); Sodium 140 mmol/L (137-145); Total Protein 8.7 g/dL (6.3-8.2)
[2022-03-12 19:46] LABS: Pregnancy Test Serum,Qual Negative (Negative)
--- NOTE | 2022-03-12 19:47 | PC.NURSE ---
pt. was falling asleep in the chair, offered the bed for them to sleep on. got pillow, pt. laid on the bed and is sleeping.
--- NOTE | 2022-03-12 20:00 | PC.NURSE ---
pt. is sleeping. opened two blankets and placed on sleeping pt.
[2022-03-12 20:07] LABS: Appearance Urine UA CLEAR; Bilirubin Urine UA NEGATIVE (NEGATIVE); Color Urine UA YELLOW; Glucose Urine UA NEGATIVE (Negative); Ketones Urine UA TRACE (NEGATIVE); Leukocyte Esterase Urine UA TRACE (NEGATIVE); Nitrite Urine UA NEGATIVE (Negative); Occult Blood Urine UA 1+ (Negative); Protein Urine UA 2+ (Negative); Specific Gravity Urine UA 1.025 (1.000-1.035); Urobilinogen Urine UA 0.2 E.U./dL (0.2)
[2022-03-12 20:08] LABS: pH Urine UA 5.5 (4.5-8.0)
[2022-03-12 20:13] LABS: UR Morphine/Opiate cutoff 300 Negative (Negative); Ur Creatinine Normal (Normal); Ur Specific Gravity Normal (Normal); Urine Amphetamines Negative (Negative); Urine Barbiturates Negative (Negative); Urine Benzodiazepines Negative (Negative); Urine Cocaine Negative (Negative); Urine MDMA Negative (Negative); Urine Methadone Negative (Negative); Urine Methamphetamines Negative (Negative); Urine Oxycodone Negative (Negative); Urine Phencyclidine Negative (Negative); Urine Tetrahydrocannabinol Negative (Negative); Urine Tricyclic Antidepressant Negative (Negative); Urine pH Normal (Normal)
[2022-03-12 20:17] LABS: TSH w/ Reflex to FT4 2.46 uIU/mL (0.47-4.68)
[2022-03-12 20:19] LABS: Amorphous Sediment Urine 1+; Bacteria Urine Moderate (10-30); Culture Indicated Urine Specimen Cultured; Mucus Urine 2+ (Negative); RBC Urine 1-5/HPF (0-5/HPF); Squamous Epithelial Cell Urine 1-5 /HPF (0-5/HPF); WBC Urine 1-5/HPF (0-5/HPF)
--- NOTE | 2022-03-12 20:31 | PC.NURSE ---
sleeping.tried waking, remained sleeping and lightly snoring
[2022-03-12 20:46] LABS: COVID19 -Nasal RAPID Negative (Negative)
--- NOTE | 2022-03-12 23:15 | PC.NURSE ---
pt wanted a warm blanket
--- NOTE | 2022-03-12 23:48 | PC.NURSE ---
pt resting with eyes closed.
[2022-03-13] VITALS (105 sets, daily range): BP systolic 83–130; BP diastolic 45–76; PULSE 71–116; RESP 16; O2SAT 90–100
--- NOTE | 2022-03-13 00:31 | PC.NURSE ---
pt is still sleeping
--- NOTE | 2022-03-13 11:15 | PC.NURSE ---
pt used commode, brushed her teeth for 5 minutes, fixed her bed, turned off lights and is now sitting quietly in bed
--- NOTE | 2022-03-13 11:47 | PC.NURSE ---
pt was brought in her lunch by nurse
--- NOTE | 2022-03-13 12:03 | PC.NURSE ---
Guzman stated a desire to leave the hospital saying that there is no reason to be in the hospital. He was walking to the bus earlier and doesn't know why he is here and wishes to be discharged.
--- NOTE | 2022-03-13 12:32 | PC.NURSE ---
pt is relaxing with eyes closed
--- NOTE | 2022-03-13 14:05 | PC.NURSE ---
rt in room with patient
--- NOTE | 2022-03-13 14:10 | CM.SWNOTE ---
Addendum entered by FAITH Gillespie 03/13/22 17:40: ED SW Update SW received another call from LEWIS Ramon who reports that there may be an opening at [facility] this evening. Yenny is sending the clinical paperwork to [facility] and will let SW know if they accept [facility]. FAITH Gillespie Addendum entered by FAITH Gillespie 03/13/22 17:00: ED SW Update SW received a call from LEWIS Ramon who reported that they have not found a bed for patient and she is filing a no bed report. Yenny reported that it is the hospital's decision if we want to release the patient or keep her overnight. If pt stays overnight, [facility] needs to call [facility] tomorrow 03/14/22 after 11am to request a new DCR evaluation. ASH updated ED Provider. FAITH Gillespie Original Note: ED SW Update Pt is 45 year old female with history of schizophrenia that presents via EMS. Pt was found running in traffic and attempting to enter private residences. ASH met DCR Yenny Sharp outside of patient's room. Yenny reports that pt was not willing to participate in interview. Yenny requests EKG for patient and reports that they will detain and look for beds once EKG is received. [facility]SH requested EKG from RN. Plan: [facility] will fax EKG and await detainment paperwork from DCR. DCR will look for available invol beds once EKG is received. FAITH Gillespie
--- NOTE | 2022-03-13 14:19 | PC.NURSE ---
pt asked for alcohol wipes to get glue off from ekg stickers
--- NOTE | 2022-03-13 14:43 | PC.NURSE ---
pt requested a mask
--- NOTE | 2022-03-13 15:58 | PC.NURSE ---
pt got up in room and asked to be discharged immediately, asked pt if they could lay in bed
--- NOTE | 2022-03-13 16:09 | PC.NURSE ---
pt stood up attempting to leave, got pt to sit down and gave her a commode
--- NOTE | 2022-03-13 18:57 | PC.NURSE ---
pt will not let us take vitals until they are seen by the doctor
--- NOTE | 2022-03-13 19:06 | PC.NURSE ---
pt is insisting to be removed from the room due to the room having a sharps container, explained to patient that every room has a sharp container, pt still insisting to be removed from the room because she knows someone has there
--- NOTE | 2022-03-13 19:19 | PC.NURSE ---
offered pt pads because she said she was on her menstrual cycle pt is currently walking around the room with pants down to her knees
--- NOTE | 2022-03-13 20:03 | PC.NURSE ---
pt is pacing in the chair claims it's a spirit moving her around
--- NOTE | 2022-03-13 20:39 | PC.NURSE ---
Patient approached by multiple RN to ask if they would like to take prescribed medication olanzapine by the provider. Patient refused to take any medication until they are in their new facility or discharged.
--- NOTE | 2022-03-13 21:07 | PC.NURSE ---
pt was offered the comode pt refused to use, pt went in cup instead
--- NOTE | 2022-03-13 21:10 | PC.NURSE ---
pt peed in a cup that was given to her with water pt was then attempting to smash the cup with her feet
--- NOTE | 2022-03-13 21:22 | PC.NURSE ---
Addendum entered by Rosa Alcantara CNA 03/13/22 23:30: pt was provided paper scrubs bottoms were provided twice to them Original Note: pt asked for a change of clothes
--- NOTE | 2022-03-13 22:04 | PC.NURSE ---
warm blanket was offered by multiple individuals pt refused
--- NOTE | 2022-03-13 22:47 | PC.NURSE ---
pt is sleeping
--- NOTE | 2022-03-13 23:29 | PC.NURSE ---
pt again refused commode, pt asked for empty cup and peed in there instead
--- NOTE | 2022-03-14 00:10 | PC.NURSE ---
pt attempted to leave room to use the restroom instructed pt she can't leave and if she'll like we can bring the commode inside, pt does not want commode pt is now sitting down by the door
--- NOTE | 2022-03-14 00:48 | PC.NURSE ---
Report was given to Em VALERA at [facility]. All questions were answered and she was given a return phone number to call us back if there was any further questions.
--- NOTE | 2022-03-14 01:24 | PC.NURSE ---
pt refused vitals
== END 2022-03-14 01:45 ==
PROVIDERS: Emergency Medicine; Emergency Provider Emergency Medicine; PCP Family Medicine
DX: F23 Brief psychotic disorder (principal); F22 Delusional disorders; Z20.822 Contact with and (suspected) exposure to COVID-19
CPT/HCPCS: 36415; 80053; 80305; 80320; 80329; 81001; 84443; 84703; 85025; 87086; 87635; 93005; 93010; 96372; 99284; C9803; G0480; J1200; J1630; J2060